=== PATIENT | male | born 1965 | race African-American/Black ===

== ENCOUNTER 2016-11-27 17:51 | Emergency (ER) | payer SELFPAY ==
[~2016-11-27] VITALS: Ht 175.3 cm; Wt 64.0 kg
[2016-11-27 17:55] VITALS: BP 138/80; PULSE 64; RESP 16; TEMP 98.7; O2SAT 98
--- NOTE | 2016-11-27 18:36 | PD ---
HPI Chief Complaint: Oral / Dental Pain or Problem Time Seen by Provider: 18:35 Travel History International Travel<30 days: No Contact w/Intl Traveler<30days: No Traveled to known affect area: No History of Present Illness HPI 51-year-old male presents to the ED for evaluation of 3 day history of right upper dental pain. The patient states that he has a broken tooth in the area. He states that the pain radiates into the methodist. He denies fever, chills, headache, dizziness, nausea, difficulties swallowing, difficulties opening or closing his mouth. He treated with 200mg ibuprofen this morning. He does not have a dentist. PFSH Past Medical History Diminished Hearing: No Tetanus Vaccination: > 5 Years Influenza Vaccination: Yes Social History Alcohol Use: Yes (beer, occasionally; 3 beers 11/26/16) Tobacco Use: Yes (08/21 ppd) Substance Use: No Allergies-Medications (Allergen,Severity, Reaction): Coded Allergies: No Known Allergies (Unverified , 11/27/16) Reported Meds & Prescriptions Reported Meds & Active Scripts Active Magic Mouthwash Adult Liq (Multi-Ingredient Mouthwash/Gargle) 120 Ml Susp 10 Ml SWISH-SWAL ACHS Each 5mL contains: Nystatin 200,000units, Diphenhydramine 4.25mg, Viscous Lidocaine 10mg, Bui syrup 0.8 mL Ibuprofen 800 Mg Tab 800 Mg PO Q8H PRN Penicillin Vk (Penicillin V Potassium) 250 Mg Tab 500 Mg PO Q6H 7 Days Review of Systems Except as stated in HPI: all other systems reviewed are Neg Physical Exam Narrative GENERAL: Well-nourished, well-developed nontoxic-appearing black male in no acute distress. SKIN: Warm and dry. HEAD: Normocephalic. Atraumatic. EYES: No scleral icterus. No injection or drainage. PERRLA. EOMI. ENT: Pearly ortez tympanic membranes bilaterally. Nasal mucosa is moist. Oropharynx without erythema, edema or exudate. DENTAL: Poor dentition overall. Tooth #3 is broken with the pulp exposed. The surrounding gingiva is erythematous, tender. No fluctuance noted. NECK: Supple, trachea midline. No JVD or lymphadenopathy. CARDIOVASCULAR: Regular rate and rhythm without murmurs, gallops, or rubs. No carotid bruits. 2+ DP and radial pulses bilaterally. RESPIRATORY: Breath sounds clear and equal bilaterally. No accessory muscle use. GASTROINTESTINAL: Abdomen soft, non-tender, nondistended. + Bowel sounds MUSCULOSKELETAL: No cyanosis, or edema. Full, active range of motion. Strength 5/5. Neurovascularly intact. BACK: Nontender without obvious deformity. No CVA tenderness. Data Data Last Documented VS Vital Signs Date Time Temp Pulse Resp B/P Pulse Ox O2 Delivery O2 Flow Rate FiO2 11/27/16 17:55 98.7 64 16 138/80 98 MDM Medical Decision Making Medical Screen Exam Complete: Yes Emergency Medical Condition: Yes Differential Diagnosis Dental caries versus dental abscess versus gingivitis versus periodontitis versus dental fracture versus other Narrative Course 51-year-old male presents to the ED for evaluation of 3 day history of right upper dental pain. The patient states that he has a broken tooth in the area. He states that the pain radiates into the methodist. He denies fever, chills, headache, dizziness, nausea, difficulties swallowing, difficulties opening or closing his mouth. He treated with 200mg ibuprofen this morning. He does not have a dentist. Vitals reviewed. Physical exam reveals a nontoxic-appearing black male in no acute distress. ENT exam is unremarkable. Tooth #3 is broken with the pulp exposed. The surrounding gingiva is erythematous and tender. No fluctuance noted. Patient was administered a dose of ibuprofen. He is prescribed penicillin VK 500 mg 4 times a day 7 days. He is also prescribed Magic mouthwash and short course of anti-inflammatory medications. Instructed to go medication as prescribed, follow up with a dentist. He was provided with a list of community dental resources. He indicated understanding of the instructions and is agreeable to the care plan. He is stable and discharged home. Diagnosis Primary Impression: Dental abscess Additional Impression: Dentalgia Referrals: Dentist Patient Instructions: Dental Abscess (ED), General Instructions Additional Instructions: Rest, hydrate. Take all antibiotics as prescribed, even if symptoms resolve. 800 mg ibuprofen every 8 hours for pain and inflammation. Magic mouthwash as needed for pain. Follow-up with the dentist. Return to the ED for any urgent or emergent medical condition. Med/Other Pt SpecificInfo: Prescription(s) given Scripts Asmpqinn-Oqucwgtltwxghla-Imjepcada Liq (Magic Mouthwash Adult Liq)120 Ml Susp10 Ml SWISH-SWAL ACHS #120 ML Ref 0 Each 5mL contains: Nystatin 200,000units, Diphenhydramine 4.25mg, Viscous Lidocaine 10mg, Bui syrup 0.8 mL Prov:Elier Lee MD 11/27/16 Ibuprofen 800 Mg [id number] Mg PO Q8H PRN (Pain/Inflammation) #15 TAB Ref 0 Prov:Elier Lee MD 11/27/16 Penicillin V Potassium (Penicillin Vk)250 Mg Jet534 Mg PO Q6H 7 Days Ref 0 Prov:Elier Lee MD 11/27/16 Disposition: 01 DISCHARGE HOME Condition: Stable Jillian Ho Nov 27, 2016 18:36
[2016-11-27] MEDS ORDERED: PENI250T59 PO (18:49)
[2016-11-27] MEDS ORDERED: MAGICADU2 SWISH-SWAL (18:49)
[2016-11-27] MEDS ORDERED: IBUP800T23 PO (18:49)
== END 2016-11-27 18:55 | disposition home or self-care (01) ==
LOC: PHEFT 17:51
DX: K04.7 Periapical abscess without sinus (principal); K08.89 Other specified disorders of teeth and supporting structures; F17.210 Nicotine dependence, cigarettes, uncomplicated
CPT/HCPCS: 99282